=== PATIENT | female | born 1960 | race Caucasian/White ===

== ENCOUNTER 2018-11-01 13:46 | Emergency (ER) | payer BC ==
[~2018-11-01] VITALS: Ht 157.5 cm; Wt 62.1 kg
[2018-11-01 13:48] VITALS: BP 126/90
--- NOTE | 2018-11-01 14:05 | NUR ---
PT AMBULATED TO ER BED 06
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
[2018-11-01] MEDS ORDERED: FLUORESCEIN OPTH STRIP 0.6 MG OP ONE (14:45)
[2018-11-01] MEDS ORDERED: TETRACAINE HCL/PF 0.5% OPTH 4 ML BTL OP ONE (14:45)
--- NOTE | 2018-11-01 15:09 | NUR ---
Dr. Amin evaluating patient at bedside.
[2018-11-01 16:02] LABS: ANION GAP 7.9 (8-16); CARBON DIOXIDE 32.6 mmol/L (21-32); CREATININE 0.9 mg/dL (0.6-1.3); POTASSIUM 3.5 mmol/L (3.5-5.1)
--- NOTE | 2018-11-01 17:37 | NUR ---
Dr. Amin re-evaluating patient at bedside.
--- NOTE | 2018-11-01 17:49 | NUR ---
Patient discharged with v/s stable. Written and verbal after care instructions given and explained. Patient alert, oriented and verbalized understanding of instructions. Ambulatory with steady gait. All questions addressed prior to discharge. ID band removed. Patient advised to follow up with PMD. Rx of ERYTHROMYCIN 0.5% OINTMENT given. Patient educated on indication of medication including possible reaction and side effects. Opportunity to ask questions provided and answered.
[2018-11-01 17:50] VITALS: BP 128/77
== END 2018-11-01 17:49 | disposition home or self-care (01) ==
LOC: MED 13:46
DX: S05.02XA Injury of conjunctiva and corneal abrasion without foreign body, left eye, initial encounter (principal); Z88.5 Allergy status to narcotic agent; X58.XXXA Exposure to other specified factors, initial encounter; Y93.89 Activity, other specified; Y92.096 Garden or yard of other non-institutional residence as the place of occurrence of the external cause; Y99.0 Civilian activity done for income or pay
CPT/HCPCS: 36415; 70481; 80048; 99284; Q9967

== ENCOUNTER 2020-12-10 20:56 | Emergency (ER) | payer BC, OTHER ==
[~2020-12-10] VITALS: Ht 157.5 cm; Wt 63.5 kg
[2020-12-10 20:56] VITALS: BP 183/98
--- NOTE | 2020-12-10 21:00 | NUR ---
[facility] TO ER BED 4
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
--- NOTE | 2020-12-10 21:10 | NUR ---
Patient being evaluated by physician at bedside.
[2020-12-10] MEDS: HALOPERIDOL IM 5 MG/ML VIAL IVP ONE (21:32)
[2020-12-10] MEDS: diphenhydrAMINE 50 MG/ML VIAL IVP ONE (21:34)
[2020-12-10] MEDS: NACL 0.9% 1,000 ML IV ONE (21:35)
[2020-12-10 21:39] LABS: BASOPHILS # (AUTO) 0.1 K/uL (0.00-0.22); BASOPHILS % (AUTO) 0.6 % (0.0-2.0); EOSINOPHILS # (AUTO) 0.1 K/uL (0-0.4); EOSINOPHILS % (AUTO) 0.9 % (0.0-4.0); HEMATOCRIT 38.2 % (36-48); LYMPHOCYTES # (AUTO) 1.8 K/uL (2.5-16.5); LYMPHOCYTES % (AUTO) 17.1 % (20.5-51.1); MEAN CORPUSCULAR HEMOGLOBIN 31 pg (27-31); MEAN CORPUSCULAR HGB CONC 34 g/dL (33-37); MEAN CORPUSCULAR VOLUME 91.1 fL (80-94); MONOCYTES # (AUTO) 0.7 K/uL (0.8-1.0); MONOCYTES % (AUTO) 7.2 % (1.7-9.3); NEUTROPHILS # (AUTO) 7.6 K/uL (1.8-7.7); NEUTROPHILS % (AUTO) 74.2 % (42.2-75.2); PLATELET COUNT (AUTO) 431 K/uL (140-450); RED BLOOD CELL COUNT(AUTO) 4.19 MIL/uL (4.20-5.40); RED CELL DISTRIBUTION WIDTH 13.9 % (11.6-13.7); WHITE BLOOD COUNT (AUTO) 10.3 K/uL (4.8-10.8)
[2020-12-10 21:53] LABS: ALBUMIN 3.6 g/dL (3.4-5.0); ANION GAP 10.6 (8-16); CARBON DIOXIDE 29.4 mmol/L (21-32); CREATININE 0.8 mg/dL (0.6-1.3); TOTAL BILIRUBIN 0.4 mg/dL (0.0-1.0)
[2020-12-10 23:00] VITALS: BP 124/68
--- NOTE | 2020-12-10 23:17 | NUR ---
UP TO BR, USING WALKER. IS STEADY. PT STATES SHE IS FEELING BETTER
[2020-12-10] MEDS ORDERED: ONDA-24 SL (23:49)
--- NOTE | 2020-12-10 23:50 | NUR ---
IV removed, catheter intact and site benign. Applied folded 4x4 gauze and tape to stop bleeding.
== END 2020-12-10 23:52 | disposition home or self-care (01) ==
LOC: MED 20:56
DX: R11.2 Nausea with vomiting, unspecified (principal); T42.8X5A Adverse effect of antiparkinsonism drugs and other central muscle-tone depressants, initial encounter; Y92.89 Other specified places as the place of occurrence of the external cause
CPT/HCPCS: 36415; 80053; 85025; 96361; 96374; 96375; 99284; J1200; J1630; J7030